=== PATIENT | male | born 1965 | race Caucasian/White ===

== ENCOUNTER → 2018-08-17 | Outpatient (CLI) | payer OTHER, SELFPAY ==
--- NOTE | 2018-08-17 09:58 | STRESSREP_ITS ---
Stress Test Report Date: 08-17-18 Procedure: Pharmacologic stress nuclear imaging study Indications: Abnormal ECG; left bundle branch block Consent: Per the patient Procedure: The patient underwent pharmacologic (Regadenoson) evaluation with a peak heart rate of 100 beats per minute (59 %predicted maximal heart rate) and a peak blood pressure of 158/100 mmHg. The baseline ECG demonstrated sinus rhythm; left bundle branch block. The peak pharmacologic ECG demonstrated no obvious ECG changes. There were no cardiac dysrhythmias pretest, during pharmacologic infusion, or recovery. There was no complaint of chest discomfort during pharmacologic infusion or recovery. The examination was discontinued secondary to completion of protocol. Impression: 1. Pharmacologic (Regadenoson) evaluation 2. Peak pharmacologic ECG with continued left bundle branch block pattern with no obvious ECG changes. 3. There were no cardiac dysrhythmias pretest, during pharmacologic infusion, or recovery. 4. Nuclear images pending Myocardial perfusion imaging study: Technique: The patient was injected with 11.9 millicuries of technetium 99m Cardiolite and subsequently rest SPECT Cardiolite nuclear imaging was obtained in the horizontal long, vertical long, and short axis views. The patient underwent pharmacologic (Regadenoson) evaluation with a peak heart rate of 100 beats per minute (59 % percent predicted maximal heart rate) and a peak blood pressure of 158/100 mmHg. The patient was injected with 34.2 millicuries of technetium 99m Cardiolite and subsequently stress SPECT Cardiolite nuclear imaging was obtained in the horizontal long, vertical long, and short axis views. A gated Cardiolite study at peak stress was obtained. Interpretation: Rest and stress SPECT Cardiolite nuclear imaging status post realignment, normalization, and attenuation correction demonstrate areas of extra cardiac/gastrointestinal tracer uptake at rest and status post stress. Otherwise, post attenuation correction, there appears to be relative uniform tracer uptake with the exception of a small area of subtle diminished tracer uptake near the apical segments without significant change between rest and stress.. There is end systolic thickening and brightening. The gated Cardiolite study demonstrates myocardial thickening and inward wall motion. The reported LVEF is 47 %. Impression: 1. Rest and stress SPECT current nuclear imaging demonstrate myocardial perfusion changes appearing compatible defects of physiologic apical thinning with no myocardial perfusion changes considered diagnostic for associated stress-induced myocardial ischemia or previous myocardial injury/infarction. 2. The gated Cardiolite study reports an LVEF of 47 %. This note was generated with Labotecation software. It may contain incorrect words, spelling, and punctuation that were not noted in checking the note before signing.
== END | disposition home or self-care (01) ==
PROVIDERS: Family Provider Family Medicine; PCP Family Medicine; Referring Provider Family Medicine; Visit Provider Family Medicine
DX: Z82.49 Family history of ischemic heart disease and other diseases of the circulatory system (principal)
CPT/HCPCS: 78452; 93017; A9500; A4216; J2785

== ENCOUNTER → 2018-08-19 | Outpatient (CLI) | payer OTHER, SELFPAY ==
[2018-08-19 08:41] LABS: Anion Gap 5 (5-15); BUN 17 mg/dL (7-18); Chloride 109 mmol/L (98-107); Cholesterol 179 mg/dL (200); Creatinine, Serum 0.85 mg/dL (0.70-1.30); EST Glomerular Filtration Rate 101 mL/min (>60); Est Glom Filt Rate - Afr Amer 122 mL/min (>60); Glucose 96 mg/dL (74-106); High Density Lipoprotein 49 mg/dL; PSA,Total - Annual Screen 1.63 ng/mL (0.00-4.00); Sodium Level 142 mmol/L (136-145); Triglycerides 84 mg/dL; Very Low Density Lipoprotein 17 mg/dL (5-40)
== END | disposition home or self-care (01) ==
LOC: LAB 07:14
PROVIDERS: Family Provider Family Medicine; PCP Family Medicine; Referring Provider Family Medicine; Visit Provider Family Medicine
DX: Z00.00 Encounter for general adult medical examination without abnormal findings (principal)
CPT/HCPCS: 36415; 80048; 80061; 84153; 84403; G0103

== ENCOUNTER 2019-04-24 08:15 | Day surgery (SDC) | payer BC, SELFPAY ==
[2019-04-04 08:40] VITALS: BMI 27.8
--- NOTE | 2019-04-05 02:52 | HP_ITS ---
Intake Vital Signs 04/04/19 BMI 27.8 04/04/19 Height 5 ft 11 in 04/04/19 Weight: 200 lb 04/04/19 BMI 27.8 04/04/19 BP 153/98 H 04/04/19 Blood Pressure Location Rt brachial 04/04/19 Position Sitting 04/04/19 Respiration 18 Intake Visit Reasons: Inguinal Hernia Exercise Teacher Required: No Is patient in pain?: No Allergies No Known Allergies Allergy (Verified 04/04/19 08:40) PFSH Medical History Family history of coronary artery disease (Chronic) Left bundle branch block (Chronic) Inguinal hernia (Chronic) Surgical History H/O right inguinal hernia repair (Resolved) Family History Father Myocardial infarction 50 Grandfather Heart disease Social History (Updated 04/05/19 @ 14:52 by Luis Armando Orozco MD) Smoking Status: Never smoker alcohol intake: current alcohol intake frequency: 3 or more drinks per day Alcohol type: beer HPI HPI HPI: LASHAE NESBITT, is a 54 M who presents to the office today for HPI HPI Surgical H&P: Yes HPI: LASHAE NESBITT, is a 54 M who presents to the office today for Left groin bulging. The patient reports that he has left groin and bellybutton bulging. This is been present for at least 6 weeks. This is causing him pain. He is not having any symptoms on the opposite side. ROS General General: No weight change or fatigue HEENT HEENT: No difficulty swallowing, eye injury or eye surgery Endo Endocrine: No thyroid disease or diabetes mellitus Musc Musculoskeletal: No back problems, arthritis or rheumatoid arthritis Cardio Cardiovascular: No murmur, pacemaker, heart disease, atrial fibrillation, high blood pressure, heart attack, heart stent, palpitations, shortness of breat with exertion or chest pain Psych Psychiatric: No depression or anxiety Resp Respiratory: No shortness of breath, No sleep apnea, No cough, No COPD, No asthma, No emphysema, No wheezing Gastro Gastrointestinal: No abdominal pain, No nausea or vomiting, No diarrhea, No constipation, No blood in stool, No acid reflux, No hemorrhoids, No ulcers, No gallbladder problem, No black,tarry stools Additional Details: Umbilical and left groin bulging Romain Hematologic: No blood thinners Neuro Neurologic: Yes system reviewed and no additional complaints, except as docu Exam Const General: cooperative Orientation: alert, oriented x3 Resp Effort & Inspection: normal respiratory effort Auscultation: clear to auscultation bilaterally Cardio Rate: regular rate Rhythm: regular rhythm Heart Sounds: no murmurs GI Inspection: non-distended Palpation: soft, hernia indirect inguinal on the left and umbilical, nontender Assessment & Plan Problems 1. Umbilical hernia without obstruction and without gangrene K42.9 2. Left inguinal hernia K40.90 Plan The patient has an umbilical hernia which is not easily reducible. He also has a left inguinal hernia which is easily reducible. I do not appreciate a hernia on the opposite side. I discussed open and laparoscopic surgery with him and he would like for robotic assisted laparoscopic left inguinal hernia repair with mesh as well as umbilical hernia repair with mesh. I explained that I would likely try to use this umbilical hernia as a port site but if I was unable to I would have to close it separately in an open fashion. I discussed robotic assisted laparoscopic inguinal hernia repair in detail. I discussed the risks including but not limited to bleeding, infection, cord injury, chronic groin pain, hernia recurrence. The patient understands the risks and is willing to proceed. I also discussed contralateral hernia repair if present and the patient would like the opposite side hernia repaired if there is one present on that side. Luis Armando Orozco MD Pager: [facility] [address] [place] [address], [address] [place] [address] Office: Coding Level of Care Code Off vis,new,level 4 Diagnoses Umbilical hernia without obstruction and without gangrene K42.9 ??Obstruction and gangrene presence: without obstruction or gangrene Left inguinal hernia K40.90 04/05/19 7671 <Electronically signed by Luis Armando soares MD> Date _ Luis Armando Orozco MD I have re-examined the patient. There are no clinical changes since date of exam. The patient is here for screening colonoscopy prior to his hernia repair. He has never had colonoscopy in the past. I explained endoscopy in detail to the patient. I explained the risks including but not limited to stroke or heart attack with anesthesia, perforation of the GI tract, bleeding, infection. I explained that any of these could necessitate further emergency surgery. The patient understands and all questions were answered sufficiently. The patient wishes to proceed with procedure. Luis Armando Orozco MD Pager: [facility] [address] [place] [address] [address] [place] [address] Office:
[2019-04-24] VITALS (7 sets, daily range): BP systolic 134–150; BP diastolic 97–102; PULSE 69–90; RESP 16; TEMP 36.1–37.2; O2SAT 96–99; BMI 27.4
[2019-04-24] MEDS: Lactated Ringers 1,000 ML 100 ML IV (08:40)
--- NOTE | 2019-04-24 09:15 | COLBX_PTH ---
PATIENT: LASHAE NESBITT LOC: EN U#:[id number] AGE/SX: 54/M ROOM: RE04/24/[address]: Dr. Luis Armando Orozco MD : 1965 BED: DIS: 04/24/2019 SPEC #: [id number] RECD: 04/24/19 12:55 STATUS: PAULO SMALLS #: [id number] BIGG: 04/24/19 09:[address]: Luis Armando Orozco DEPT: SURGICAL PATHOLOGY RECD BY: Eriberto Nur ENTERED: 04/24/19 14:03 SP TYPE: COLON BX OTHR DR: Dr. Sukhdeep Abernathy MD Tissues: Descending colon Procedures: Surgery Specimen Level IV HEADER OPERATION: Colonoscopy (MAC) PRE-OP DIAGNOSIS: Screening TISSUE SUBMITTED: Descending polyp biopsy MICROSCOPIC DIAGNOSIS Descending colon polyp, biopsy: Tubular adenoma. SJ:amarilis 04/25/19 MICROSCOPIC DESCRIPTION Slides are reviewed. GROSS DESCRIPTION Received in fixative is one container labeled with the patient's name and designated descending polyp biopsy. The specimen consists of one irregular fragment of light cano soft tissue that measures 0.4 x 0.4 x 0.1 cm. The specimen is totally submitted in one cassette. / SJ:rg 04/24/19 TC:1 CPT: 33931
--- NOTE | 2019-04-24 09:25 | OP.CCLET_ITS ---
04/24/2019 Sukhdeep Abernathy MD [address] [place] [address] Re : Colonoscopy procedure for Juanjose Light Dear Dr. Abernathy This procedure was performed on Wednesday, April 24, 2019. My impressions and recommendations are as follows: Impressions : - One small polyp in the descending colon, removed with a cold biopsy forceps. Resected and retrieved. - The examination was otherwise normal on direct and retroflexion views. Recommendations : - Written discharge instructions were provided to the patient. - The signs and symptoms of potential delayed complications were discussed with the patient. - Discharge patient to home. - Resume previous diet. - Continue present medications. - Await pathology results. - Repeat colonoscopy for surveillance based on pathology results. My findings are described in the full procedure note, which is enclosed. If I can be of further assistance, please feel free to contact me at Doctor phone number(s): , Work: . Sincerely, Luis Armando Orozco MD 04/24/2019 9:24:53 AM This report has been signed electronically.
--- NOTE | 2019-04-24 09:25 | OP.COLON_ITS ---
Patient Name: Juanjose Light Procedure Date: 04/24/2019 8:56 AM Date of : 1965 Age: 54 Procedure: Colonoscopy Indications: Screening for colorectal malignant neoplasm Providers: Luis Armando Orozco MD Medicines: Monitored Anesthesia Care Patient Profile: This is a 54 year old male. Refer to note in patient chart for documentation of history and physical. Last Colonoscopy: none. The patient's first colonoscopy is today. Complications: No immediate complications. Procedure: Pre-Anesthesia Assessment: - Prior to the procedure, a History and Physical was performed, and patient medications and allergies were reviewed. The patient's tolerance of previous anesthesia was also reviewed. The risks and benefits of the procedure and the sedation options and risks were discussed with the patient. All questions were answered, and informed consent was obtained. Prior Anticoagulants: The patient has taken no previous anticoagulant or antiplatelet agents. After reviewing the risks and benefits, the patient was deemed in satisfactory condition to undergo the procedure. After I obtained informed consent, the scope was passed under direct vision. Throughout the procedure, the patient's blood pressure, pulse, and oxygen saturations were monitored continuously. The Colonoscope was introduced through the anus and advanced to the cecum, identified by appendiceal orifice and ileocecal valve. The colonoscopy was performed without difficulty. The patient tolerated the procedure well. The quality of the bowel preparation was good. Scope In: 9:08:03 AM Scope Withdrawal Time 0 hours 6 minutes 36 seconds Scope Out: 9:18:15 AM Total Procedure Duration Time 0 hours 10 minutes 12 seconds Findings: A small polyp was found in the descending colon. The polyp was removed with a cold biopsy forceps. Resection and retrieval were complete. The exam was otherwise without abnormality on direct and retroflexion views. Impression: - One small polyp in the descending colon, removed with a cold biopsy forceps. Resected and retrieved. - The examination was otherwise normal on direct and retroflexion views. Recommendation: - Written discharge instructions were provided to the patient. - The signs and symptoms of potential delayed complications were discussed with the patient. - Discharge patient to home. - Resume previous diet. - Continue present medications. - Await pathology results. - Repeat colonoscopy for surveillance based on pathology results. Procedure Code(s): --- Professional --- 59555, Colonoscopy, flexible; with biopsy, single or multiple Diagnosis Code(s): --- Professional --- Z12.11, Encounter for screening for malignant neoplasm of colon D12.4, Benign neoplasm of descending colon CPT copyright 2017 [employer]. All rights reserved. The codes documented in this report are preliminary and upon ticket scheduler review may be revised to meet current compliance requirements. Luis Armando Orozco MD 04/24/2019 9:24:53 AM This report has been signed electronically. Number of Addenda: 0 Note Initiated On: 04/24/2019 8:56 AM
== END 2019-04-24 10:07 | disposition home or self-care (01) ==
LOC: EN 08:21 → AC 08:21
PROVIDERS: PCP Family Medicine; Referring Provider Family Medicine; Visit Provider Surgery
PROC: 0DJD8ZZ Inspection of Lower Intestinal Tract, Via Natural or Artificial Opening Endoscopic (ICD-10-PCS; CPT 45378; principal; 2019-04-24 09:10)
DX: Z12.11 Encounter for screening for malignant neoplasm of colon (principal); D12.4 Benign neoplasm of descending colon; K40.90 Unilateral inguinal hernia, without obstruction or gangrene, not specified as recurrent; K42.9 Umbilical hernia without obstruction or gangrene; Z91.14 Patient's other noncompliance with medication regimen
CPT/HCPCS: 45380; 88305; J7120

== ENCOUNTER → 2019-05-17 | Outpatient (CLI) | payer BC, SELFPAY ==
[2018-12-06 15:45] VITALS: BMI 27.8
[2019-05-04 14:45] VITALS: BMI 28.4
--- NOTE | 2019-05-17 13:00 | ECHOD_ITS ---
Reason For Study: ARRHYTHMIA Procedure This was a 2D Doppler, Color Flow transthoracic echocardiogram. Exam performed in department. Left Ventricle Normal LV size. Septal motion consistent with IVCD. Left ventricular systolic function is lower limits of normal. The estimated ejection fraction is 53 %. Diastolic function is indeterminate. Right Ventricle Normal RV size. Normal systolic function. Atria Normal left atrium. Normal right atrium. Mitral Valve Mild focal mitral valve thickening. Mild (1+) eccentric mitral valve insufficiency. Tricuspid Valve Normal tricuspid valve. Aortic Valve Normal aortic valve. Trisinus/trileaflet aortic valve. Pulmonic Valve Normal pulmonic valve. Great Vessels Normal aortic root. The pulmonary artery is normal size. Normal inferior vena cava. Pericardium/Pleural No pericardial effusion. MMode/2D Measurements & Calculations LVIDd: 4.8 cm IVSd: 1.2 cm Ao root diam: 3.3 cm LVIDs: 3.6 cm LVPWd: 1.1 cm RVDd: 3.8 cm FS: 25.1 % LAV(MOD-bp): 44.0 ml LVAd ap4: 34.4 cm2 SV(MOD-sp4): 50.3 ml LAV(MOD-bp) Indexed: 20.9 ml/m2 EDV(MOD-sp4): 102.7 ml LAV(MOD-sp2): 39.9 ml EDV(sp4-el): 105.4 ml LAV(MOD-sp4): 44.7 ml LVAs ap4: 21.5 cm2 ESV(MOD-sp4): 52.4 ml ESV(sp4-el): 52.8 ml EF(MOD-sp4): 49.0 % EF(sp4-el): 49.9 % SV(sp4-el): 52.6 ml LA A4 area: 16.8 cm2 LA dimension(2D): 3.9 cm RA A4 area: 16.5 cm2 Time Measurements MV dec time: 0.27 sec Doppler Measurements & Calculations MV E max ajay: 56.7 cm/sec Lat Peak E' Ajay: 5.1 cm/sec Med Peak E' Ajay: 5.3 cm/sec MV A max ajay: 89.4 cm/sec E/E' lat: 11.1 E/E' med: 10.7 MV E/A: 0.63 Ao V2 max: 138.8 cm/sec LV V1 max: 112.5 cm/sec PA V2 max: 188.1 cm/sec Ao max P.7 mmHg LV V1 max P.1 mmHg Interpretation Summary Normal LV size. Left ventricular systolic function is lower limits of normal. The estimated ejection fraction is 53 %. Mild (1+) eccentric mitral valve insufficiency. Septal motion consistent with IVCD. Diastolic function is indeterminate. Ordering Physician: Abdi Altman Referring Physician: LAUREN DUBOIS Performed By: Guerline Ledezma, RDCS, RVT
--- NOTE | 2019-05-17 13:51 | CT_ITS ---
STUDY: CARDIAC CALCIUM SCORING - CT CHEST REASON FOR EXAM: Male, 54 years old. CAD -- CALCIUM SCORE OVER READ ONLY RADIATION DOSAGE (If Supplied By Facility): CTDIvol = ( 12.19 ) mGy, DLP = ( 243.79 ) mGycm TECHNIQUE: Axial non-enhanced images were acquired through the heart for the sole purpose of measuring coronary artery calcium. Individualized dose optimization techniques were used for this CT. COMPARISON: None. FINDINGS: Visualized surrounding anatomy: Normal. Left Main Coronary Artery: 42.3 Left Anterior Descending Artery: 184 Left Circumflex Artery: 0 Right Coronary Artery: 90 Tiny cyst in left lobe of liver Total Calcium Score: 317 CT/Limited Chest CT w/CCTA IMPRESSION: A Calcium Score of 317 places the patient in the approximate 75-90 percentile, based on the YEAGER data calculator. Please go to: [email or web address]-nhlbi.org/Calcium/input.aspx , for a description of the calculator. Electronically Signed: Juanjose Ratliff MD at 17:18 EST , Service support ,
[2019-05-17 13:57] VITALS: BP 139/93; PULSE 74; RESP 16; O2SAT 98; BMI 27.8
--- NOTE | 2019-05-17 15:07 | CA.SCORE ---
Calcium Scoring Date of Study:: 05/17/19 Coronary Calcium Scoring: High-resolution Computed Tomographic imaging of the chest was performed on [05/17/2019], with particular attention paid to the coronary arteries. Images from the examination were analyzed for the presence and extent of coronary artery calcification , using coronary calcium quantification software. The patient tolerated the procedure well and there were no complications. The results of the coronary calcification analysis are provided below. - Findings Left Main (LM): 42 Left Anterior Descending (LAD): 184 Left Circumflex (LCX): 0 Right Coronary Artery (RCA): 90 Total Agatston Score: 316 Percentile Rankin-90 Calcium Scoring Interpretation: 0 No identifiable atherosclerotic plaque. Very low cardiovascular disease risk. <5% chance of presence coronary artery disease A Negative Examination 1-10 Minimal Plaque burden. Significant coronary artery disease very unlikely. 11-100 Mild plaque burden. Likely mild or minimal coronary atherosclerosis. 101-400 Moderate plaque burden Moderate non-obstructive coronary artery disease highly likely. Over 400 Extensive plaque burden. High likelihood of at least one significant coronary stenosis (>50% diameter) Calcium Score: 101 - 400 Moderate non-obstructive coronary artery disease highly like - The above is suggestive of moderate atherosclerotic disease. Likely nonobstructive. However the full evaluation of cardiac risk should include assessment of all other risk factors. The percentile range however puts him higher than 75% of people in his age group.
[2019-05-17 16:14] LABS: CRP, High Sensitivity Cardiac 1.56 mg/L
[2019-05-21 16:08] LABS: CHOLESTEROL TOTAL 173 mg/dL (100-199); HDL-C 43 mg/dL (>39); HDL-P TOTAL 29.6 umol/L (>=30.5); SMALL LDL-P 678 nmol/L (<=527); TRIGLYCERIDES 144 mg/dL (0-149)
[2019-05-21 19:11] LABS: Lipoprotein A 234.8 nmol/L (<75.0)
[2019-05-21 19:25] LABS: INSULIN RESISTANCE SCORE 40 (<=45); LDL SIZE 20.7 nm (>20.5); LDL-C 101 mg/dL (0-99); LDL-P 1388 nmol/L (<1000)
== END | disposition home or self-care (01) ==
PROVIDERS: Family Provider Family Medicine; PCP Family Medicine; Referring Provider Internal Medicine Cardiovascular Disease; Visit Provider Internal Medicine Cardiovascular Disease
DX: I44.7 Left bundle-branch block, unspecified (principal); R03.0 Elevated blood-pressure reading, without diagnosis of hypertension; Z82.49 Family history of ischemic heart disease and other diseases of the circulatory system
CPT/HCPCS: 36415; 75571; 76380; 80061; 83695; 83704; 86141; 93306

== ENCOUNTER → 2019-06-01 11:53 | Outpatient (CLI) | payer BC, SELFPAY ==
[2019-04-04 08:40] VITALS: BMI 27.8
--- NOTE | 2019-04-05 02:52 | HP_ITS ---
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 Is patient in pain?: No Allergies No Known Allergies Allergy (Verified 04/04/19 08:40) PFSH Medical History Family history of coronary artery disease (Chronic) Left bundle branch block (Chronic) Inguinal hernia (Chronic) Surgical History H/O right inguinal hernia repair (Resolved) Family History Father Myocardial infarction 50 Grandfather Heart disease Social History (Updated 04/05/19 @ 14:52 by Luis Armando Orozco MD) Smoking Status: Never smoker alcohol intake: current alcohol intake frequency: 3 or more drinks per day Alcohol type: beer HPI HPI HPI: LASHAE NESBITT, is a 54 M who presents to the office today for HPI HPI Surgical H&P: Yes HPI: LASHAE NESBITT, is a 54 M who presents to the office today for Left groin bulging. The patient reports that he has left groin and bellybutton bulging. This is been present for at least 6 weeks. This is causing him pain. He is not having any symptoms on the opposite side. ROS General General: No weight change or fatigue HEENT HEENT: No difficulty swallowing, eye injury or eye surgery Endo Endocrine: No thyroid disease or diabetes mellitus Musc Musculoskeletal: No back problems, arthritis or rheumatoid arthritis Cardio Cardiovascular: No murmur, pacemaker, heart disease, atrial fibrillation, high blood pressure, heart attack, heart stent, palpitations, shortness of breat with exertion or chest pain Psych Psychiatric: No depression or anxiety Resp Respiratory: No shortness of breath, No sleep apnea, No cough, No COPD, No asthma, No emphysema, No wheezing Gastro Gastrointestinal: No abdominal pain, No nausea or vomiting, No diarrhea, No constipation, No blood in stool, No acid reflux, No hemorrhoids, No ulcers, No gallbladder problem, No black,tarry stools Additional Details: Umbilical and left groin bulging Romain Hematologic: No blood thinners Neuro Neurologic: Yes system reviewed and no additional complaints, except as docu Exam Const General: cooperative Orientation: alert, oriented x3 Resp Effort & Inspection: normal respiratory effort Auscultation: clear to auscultation bilaterally Cardio Rate: regular rate Rhythm: regular rhythm Heart Sounds: no murmurs GI Inspection: non-distended Palpation: soft, hernia indirect inguinal on the left and umbilical, nontender Assessment & Plan Problems 1. Umbilical hernia without obstruction and without gangrene K42.9 2. Left inguinal hernia K40.90 Plan The patient has an umbilical hernia which is not easily reducible. He also has a left inguinal hernia which is easily reducible. I do not appreciate a hernia on the opposite side. I discussed open and laparoscopic surgery with him and he would like for robotic assisted laparoscopic left inguinal hernia repair with mesh as well as umbilical hernia repair with mesh. I explained that I would likely try to use this umbilical hernia as a port site but if I was unable to I would have to close it separately in an open fashion. I discussed robotic assisted laparoscopic inguinal hernia repair in detail. I discussed the risks including but not limited to bleeding, infection, cord injury, chronic groin pain, hernia recurrence. The patient understands the risks and is willing to proceed. I also discussed contralateral hernia repair if present and the patient would like the opposite side hernia repaired if there is one present on that side. Luis Armando Orozco MD Pager: [facility] [address] [place] [address], [address] [place] [address] Office: Coding Level of Care Code Off vis,new,level 4 Diagnoses Umbilical hernia without obstruction and without gangrene K42.9 ??Obstruction and gangrene presence: without obstruction or gangrene Left inguinal hernia K40.90 04/05/19 6746 <Electronically signed by Luis Armando soares MD> Date _ Luis Armando Orozco MD Patient is scheduled for hernia repair. The patient has never had endoscopy for screening colonoscopy. Screening colonoscopy will be performed before hernia repair I explained endoscopy in detail to the patient. I explained the risks including but not limited to stroke or heart attack with anesthesia, perforation of the GI tract, bleeding, infection. I explained that any of these could necessitate further emergency surgery. The patient understands and all questions were answered sufficiently. The patient wishes to proceed with procedure. Luis Armando Orozco MD Pager: [facility] [address] [place] [address] Office:
[2019-05-17 13:57] VITALS: BMI 27.8
== END ==
PROVIDERS: PCP Family Medicine; Visit Provider Surgery
DX: R69 Illness, unspecified (principal)

== ENCOUNTER 2020-01-19 18:12 | Emergency (ER) | payer BC, SELFPAY ==
[2019-05-17 13:57] VITALS: BMI 27.8
[2020-01-19 18:13] VITALS: BP 161/100; PULSE 85; RESP 24; TEMP 36.3; O2SAT 99; BMI 27.6
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
[2020-01-19] MEDS: Morphine 4 MG/ML Syringe IV ×3 (18:32→20:14)
[2020-01-19] MEDS: Ondansetron 4 MG/2 ML Vial IV (18:32)
[2020-01-19] MEDS: Diphth,Pertuss(Acell),Tet Vac 0.5 ML Vial IM (18:41)
[2020-01-19 18:52] LABS: Absolute Neutrophil Count 6.8 X10^3/uL (2.0-7.7); Basophil# 0.06 X10^3/uL; Basophil% 0.6 % (0-1); Eosinophil# 0.09 X10^3/uL; Eosinophils% 0.9 % (0-5); Hematocrit 41.5 % (40-54); Hemoglobin 14.1 g/dL (13.0-16.5); Lymphocyte % 24.4 % (19-41); Mean Corpuscular Hgb 32.3 pg (27.0-32.0); Mean Platelet Vol. 9.6 fl (6.2-12.0); Monocyte# 0.73 X10^3/uL; Monocyte% 7.1 % (0-10); NRBC Flagged by Analyzer 0 % (0-5); Neutrophil # 6.82 X10^3/uL (2.7-7.7); Neutrophil % 66.6 % (47-70); Platelet Count 267 K/mm3 (150-450); RBC Distribution Width CV 12.2 % (11.6-14.6); RBC Distribution Width SD 42.8 fl (35.1-43.9); Red Blood Count 4.37 M/mm3 (4.6-6.2); White Blood Count 10.2 K/mm3 (4.4-11.0)
[2020-01-19 19:02] LABS: International Normalized Ratio 1.1; Prothrombin Time (Protime)PT. 13.4 SECONDS (11.7-14.9)
[2020-01-19 19:03] LABS: Partial Thromboplast Time 26.1 Seconds (24.1-36.2)
[2020-01-19 19:12] VITALS: BP 181/105; PULSE 89; RESP 20; O2SAT 96
[2020-01-19 19:12] LABS: AST(SGOT) 26 U/L (15-37); Alanine Aminotransfer ALT/SGPT 28 U/L (16-61); Albumin, Serum 3.4 g/dL (3.2-5.0); Alkaline Phosphatase 92 U/L (45-117); Anion Gap 9 (5-15); BUN 15 mg/dL (7-18); BUN/Creat Ratio 17.6 RATIO (10-20); Calcium,Total 7.6 mg/dL (8.5-10.1); Chloride 110 mmol/L (98-107); Creatinine, Serum 0.85 mg/dL (0.70-1.30); EST Glomerular Filtration Rate 100 mL/min (>60); Est Glom Filt Rate - Afr Amer 121 mL/min (>60); Estimated Creatinine Clearance 108.27 ml/min; Globulin 3.3 g/dL (2.2-4.2); Glucose 100 mg/dL (74-106); Potassium 2.9 mmol/L (3.5-5.1); Protein, Total 6.7 g/dL (6.4-8.2); Sodium Level 143 mmol/L (136-145)
[2020-01-19] MEDS: 0.9% Normal Saline 1,000 ML 150 ML IV (19:20)
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
[2020-01-19 20:11] VITALS: BP 177/100; PULSE 87; RESP 20; O2SAT 98
[2020-01-19 21:12] VITALS: BP 173/103; PULSE 89; RESP 19; O2SAT 96
--- NOTE | 2020-01-19 21:15 | ED.RN ---
PT REFUSED TO SIGN FOR TRANSPORT AND REQUESTED TO GO HOME, DR. MARX AT BEDSIDE TALKING WITH PT.
[2020-01-19 21:29] VITALS: BP 191/104; PULSE 89; RESP 18; TEMP 36.3; O2SAT 96
== END 2020-01-19 21:34 | disposition short-term general hospital (02) ==
LOC: ED 18:33
PROVIDERS: Emergency Provider Emergency Medicine; PCP Family Medicine
DX: S22.41XA Multiple fractures of ribs, right side, initial encounter for closed fracture (principal); S50.01XA Contusion of right elbow, initial encounter; S00.211A Abrasion of right eyelid and periocular area, initial encounter; V89.0XXA Person injured in unspecified motor-vehicle accident, nontraffic, initial encounter; Y93.I9 Activity, other involving external motion; Y92.410 Unspecified street and highway as the place of occurrence of the external cause; Y99.8 Other external cause status
CPT/HCPCS: 70450; 71260; 72125; 74177; 80053; 80320; 84484; 85025; 85610; 85730; 90715; 93005; 96374; 96375; 96376; 99285; J7030; Q9967; A4216; G0480; J2405

== ENCOUNTER → 2020-07-17 15:41 | Outpatient (CLI) | payer BC, SELFPAY ==
--- NOTE | 2020-07-17 15:45 | MRI_ITS ---
STUDY: MRI RIGHT SHOULDER REASON FOR EXAM: Male, 55 years old. RT SHOULDER IMPINGEMENT TECHNIQUE: Standardized fat and water weighted pulse sequences were obtained in all 3 orthogonal planes. COMPARISON: None. FINDINGS: Mild/moderate supraspinatal and infraspinatus tendinosis with low-grade partial-thickness tear of the supraspinatus articular surface fibers (coronal image 15 series 5). Mild subscapularis tendinosis. Normal teres minor tendon. No muscle atrophy. Moderate intracapsular biceps tendinosis. Biceps labral anchor intact. Labral degeneration with anterior inferior tearing and large inferior para labral cyst formation measuring up to 2.1 cm x 1 cm (coronal image 6 series 5 and axial images 17 through 20 series 2). Capsular ligaments intact. Normal rotator cuff interval. Glenohumeral joint fluid physiologic. No subacromial subdeltoid fluid. Mild glenohumeral cartilage loss. Mild/moderate acromioclavicular joint arthrosis with joint space widening (coronal image 11 series 5). Mild anterior interval narrowing. No acute fracture line. No acute dislocation. No acute bone destruction. Intact coracohumeral and coracoacromial ligaments. Normal quadrilateral space. Normal axillary space. Normal deltoid muscle. Normal trapezius muscle. MRI/Upper Ext Joint Only(Routine) IMPRESSION: Rotator cuff tendinosis with low-grade partial-thickness supraspinatus articular fiber tear Moderate intracapsular long biceps tendinosis Labral degeneration with tearing and large inferior posterior para labral cyst Glenohumeral and AC joint arthrosis with mild anterior interval narrowing Electronically Signed: Eduar Martino DO at 8:32 EDT Tel , Service support ,
== END ==
PROVIDERS: PCP Family Medicine; Referring Provider Orthopaedic Surgery; Visit Provider Orthopaedic Surgery
DX: M75.41 Impingement syndrome of right shoulder (principal)
CPT/HCPCS: 73221

== ENCOUNTER 2020-11-17 14:01 | Outpatient (CLI) | payer BC, SELFPAY ==
[2020-11-17 14:32] VITALS: BP 121/90; PULSE 77; RESP 16; TEMP 37.1; O2SAT 97; BMI 27.3
[2020-11-17] MEDS: 0.9% Saline Lock 10 ML Syringe IV (14:49)
[2020-11-17 15:04] VITALS: BP 133/96; PULSE 82; RESP 16; TEMP 36.6; O2SAT 96
[2020-11-17 15:58] VITALS: BP 133/96; PULSE 68; RESP 16; TEMP 36.8; O2SAT 96
== END 2020-11-17 16:05 | disposition home or self-care (01) ==
LOC: ICUOUT 14:05 → MS2 14:07
PROVIDERS: PCP Family Medicine; Referring Provider Nurse Practitioner Acute Care; Visit Provider Nurse Practitioner Acute Care
DX: Z23 Encounter for immunization (principal); U07.1 COVID-19
CPT/HCPCS: J7050; M0243; A4216; Q0244

== ENCOUNTER 2021-04-06 14:30 | Outpatient (RCR) | payer BC, SELFPAY ==
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
--- NOTE | 2021-08-12 10:44 | HP.PT.NRP ---
LASHAE NESBITT was seen in my office for initial evaluation on 03/09/21. The following Plan of Care was established for this patient: Initial Frequency: 2-3x /Week Initial Duration: 4-6 Weeks Patient/Client Instruction: Educate patient on: Condition, Plan of Care For the Purpose of:: To improve self management Therapeutic Exercise to Include: Strength training, Endurance training, Flexibilty training, Passive ROM, Active ROM, Scapular Strength/Stabilization For the Purpose of:: To decrease pain, To increase ROM, To improve muscle performance and motor function Cryotherapy (ice pack, ice massage): Yes For the Purpose of:: To decrease pain This patient was last seen in our office . Pertinent comments regarding their Physical therapy will appear below: Pt was treated for 5 physical therapy visits for a R shoulder pain through the date of 04/06/21. Pt has not returned through this date and is discontinued at this time. At this point I will be discontinuing this patient from physical therapy. I would be happy to see this patient again in the future if found appropriate by the physician. Thank you! Ko Poole, PT, ATC Balance/Gait/Functional tests - Balance/Special Test Scores Quick DASH Score: 84.0900
== END 2021-04-06 19:00 | disposition home or self-care (01) ==
LOC: PT 14:30
PROVIDERS: PCP Family Medicine; Referring Provider Orthopaedic Surgery; Visit Provider Orthopaedic Surgery
DX: S43.101D Unspecified dislocation of right acromioclavicular joint, subsequent encounter (principal); X58.XXXD Exposure to other specified factors, subsequent encounter
CPT/HCPCS: 97110; 97140; 97161

== ENCOUNTER 2022-09-02 09:56 | Day surgery (SDC) | payer BC, SELFPAY ==
[2022-09-02] VITALS (8 sets, daily range): BP systolic 144–168; BP diastolic 92–107; PULSE 73–80; RESP 16–18; TEMP 36.6–37.3; O2SAT 93–99; BMI 27.1
--- NOTE | 2022-09-02 10:18 | EKG12_ITS ---
Test Reason : PRE-OP Blood Pressure : / mmHG Vent. Rate : 069 BPM Atrial Rate : 069 BPM P-R Int : 166 ms QRS Dur : 148 ms QT Int : 456 ms P-R-T Axes : 048 -58 032 degrees QTc Int : 488 ms Normal sinus rhythm Left axis deviation Left bundle branch block Abnormal ECG When compared with ECG of 19-JAN-2020 19:22, No significant change was found Confirmed by OMEGA CHRISTENSEN, SANDY ([id number]), department editor LIS MENDEZ ([id number]) on 09/06/2022 2:41:38 PM Referred By: Luis Armando Orozco Confirmed By:SANDY DUFF MD
[2022-09-02] MEDS: Lactated Ringers 1,000 ML 15 ML IV (10:20)
[2022-09-02 10:31] LABS: Hematocrit 44.6 % (40-54); Hemoglobin 15.6 g/dL (13.0-16.5); Mean Corpuscular Hgb 32.8 pg (27.0-32.0); Mean Corpuscular Volume 93.7 fL (80-94); Mean Platelet Vol. 9.2 fl (6.2-12.0); Platelet Count 231 K/mm3 (150-450); RBC Distribution Width CV 12.6 % (11.6-14.6); RBC Distribution Width SD 43.5 fl (35.1-43.9); Red Blood Count 4.76 M/mm3 (4.6-6.2); White Blood Count 5.4 K/mm3 (4.4-11.0)
--- NOTE | 2022-09-02 10:31 | PCM.HP.BLA ---
History and Physical Date of Admission: 09/02/22 Intake Vital Signs ? 11/17/2113:32 08/19/2313:31 Height 5 ft 9 in 5 ft 9 in Weight: ? 187 lb 6 oz BMI ? 27.6 BP ? 126/88 H Blood Pressure Location ? Rt brachial Position ? Sitting Respiration ? 17 Pulse ? 72 Pulse Source ? Monitor Temp ? 97.7 F L Temp Source ? Temporal Pulse Oximetry (%) ? 98 Oxygen Delivery Method ? room air Intake Visit Reasons:?INGUINAL HERNIA Chief Complaint: inguinal hernia Is patient in pain?: No Allergies lisinopril Adverse Reaction (Intermediate, Verified 08/19/22 14:34) dry hacking cough Medications losartan 25 mg tablet 25 mg PO DAILY 11/17/20 [History Confirmed 08/19/22] PFSH Medical History?(Updated 08/19/22 @ 15:[address] Luis Armando Orozco MD) Family history of coronary artery disease Inguinal hernia Left bundle branch block Surgical History? H/O right inguinal hernia repair Family History?(Reviewed 11/13/20 @ 15:04 by Muna De Anda BUSINESS SERVICES ADMINISTRATOR, BUSINESS SERVICES ADMINISTRATOR-C) Father Myocardial infarction ?? ? 50Grandfather Heart disease Social History?(Updated 08/19/22 @ 14:31 by Susy Weldon) Smoking Status:? Never smoker alcohol intake:? current alcohol intake frequency: 3 or more drinks per day Alcohol type: beer substance use type:? marijuana HPI HPI HPI: Patient is here because of left inguinal hernia and umbilical hernia.? He had these evaluated few years ago and now they are bothering him more and he would like them fixed.? He does not report any nausea or vomiting.? Denies any fevers or chills.? Says there is no acute pain. ROS General General: No weight change, appetite, fatigue, colon cancer, breast cancer or weakness HEENT HEENT: No difficulty swallowing, eye injury, eye surgery, swollen glands or hoarseness Endo Endocrine: No thyroid disease, diabetes mellitus, thyroid cancer, Hair loss, heat intolerance or cold intolerance Skin Skin: No rash or changing moles Musc Musculoskeletal: No back problems, arthritis, rheumatoid arthritis, gout or joint pain Cardio Cardiovascular: Yes high blood pressure; No murmur, pacemaker, heart disease, atrial fibrillation, heart attack, heart stent, palpitations, shortness of breat with exertion or chest pain Psych Psychiatric: No depression, anxiety or hearing voices Resp Respiratory: No shortness of breath, No sleep apnea, No cough, No COPD, No asthma, No emphysema and No wheezing Gastro Gastrointestinal: No abdominal pain, No nausea or vomiting, No diarrhea, No constipation, No blood in stool, No acid reflux, No hemorrhoids, No ulcers, No gallbladder problem and No black,tarry stools Romain Hematologic: No blood thinners, No blood disorders, No bleeding, No anemia and No blood clots Neuro Neurologic: No system reviewed and no additional complaints, except as documented, No as per HPI, No abnormal gait, No abnormal hearing, No abnormal movements, No abnormal speech, No behavioral changes, No burning sensations, No confusion, No convulsions, No disequilibrium, No dizziness, No localized weakness, No frequent falls, No headache(s), No lack of coordination, No loss of vision, No memory loss, No numbness, No other visual disturbances, No radicular pain, No restless legs, No sensory deficit, No syncope, No tingling, No tremor(s), No weakness and No other Exam Const General: cooperative Orientation: alert and oriented x3 HENMT Head: normal to inspection Neck Neck: normal visual inspection and full ROM Chest Chest palpation & inspection: normal inspection of the chest Resp Effort & Inspection: normal respiratory effort Auscultation: clear to auscultation bilaterally Cardio Rate: regular rate Rhythm: regular rhythm GI Inspection: non-distended Palpation: soft, hernia indirect inguinal on the left and umbilical and nontender Skin General: no rashes or lesions noted Neuro General: patient alert and patient oriented x3 Extrem General: full ROM Psych Appearance: grossly normal Mental Status: mental status grossly normal Assessment and Plan Assessment and Plan (1) Left inguinal hernia: ?Status:?Acute (2) Umbilical hernia: ?Status:?Acute ?Qualifiers: ?Obstruction and gangrene presence:?without obstruction or gangrene? Qualified Code(s):?K42.9 - Umbilical hernia without obstruction or gangrene Plan Patient has an umbilical hernia in the left inguinal hernia.? I discussed robotic assisted left inguinal hernia repair with mesh.? I also discussed using the umbilicus as a port site but if I was unable to do that he may require open umbilical hernia repair.? I discussed possibly using mesh to the umbilicus if the hernia defect is over centimeter.? I also discussed the risks of both procedures including but not limited to bleeding, infection, injury to underlying organs such as the bowel, bladder, ureter or blood vessels.? Patient understands the risks and is willing to proceed with both hernia repairs. Luis Armando Orozco MD Pager: [facility] [address] [place] [address] [address] [place] [address] Office: I have examined the patient and the H&P has been reviewed. There are no clinical changes since date of exam.
[2022-09-02] MEDS: Cefazolin 2 GM in 0.9% Normal Saline 100 ML IV (11:09)
[2022-09-02] MEDS: Bupivacaine Mpf 0.5% 30 ML VIAL (11:17)
--- NOTE | 2022-09-02 12:19 | PCM.OPRPT ---
Report of Operation Date of Procedure: 09/02/22 Pre-Operative Diagnosis: 1. Umbilical hernia 2. Left inguinal hernia Post-Operative Diagnosis: Same Surgery/Procedure Performed:: 1. Robotic assisted laparoscopic left inguinal hernia repair with mesh 2. Umbilical hernia repair Description of Procedure: Patient was brought back to the operating room and general anesthesia was induced. The abdomen was prepped and draped in usual sterile fashion. A curvilinear incision was marked superior to the umbilicus and then incision was made with a scalpel. The fat that was protruding through the hernia was isolated and reduced into the abdomen. The abdomen was entered through the hernia. Port was placed in the abdomen was insufflated to 15 mmHg. Next under direct visualization an 8 mm port was placed in the left lower quadrant as well as the right lateral sidewall. The robot was then docked after the patient was placed in Trendelenburg position. Patient had a large left direct inguinal hernia. Use electrocautery scissors an incision was made in the peritoneum. This was dissected inferiorly until the hernia sac was encountered. The hernia was dissected free from its adhesions using sharp and electrocautery dissection. Dissection was carried inferiorly and medially. Next ProGrip mesh was unfolded over the hernia defect completely covering the defect with good coverage. The peritoneum was then reapproximated using a running 3 OV lock suture completely covering the mesh. The robot was then undocked and the abdomen was allowed to desufflate. The umbilical hernia was closed with a [id number] 0 Vicryl suture. The skin incisions were injected with local anesthetic. Skin was closed with interrupted 4-0 Monocryl sutures. Steri-Strips and bandages were applied. Patient tolerated the procedure well was brought to PACU in stable condition. Grafts/Implants Used: ProGrip mesh in the left inguinal region Admit VTE Documentation VTE Mechan Device Prophylaxis: SCD's
--- NOTE | 2022-09-02 12:21 | DCINST_ITS ---
Discharge Instructions Procedure Hernia Diet Discharge Diet: Light diet - advance as tolerated Activity Discharge Activity: May Not Drive (for 2-3 days or while taking narcotic pain meds.) and May Shower (with the bandage in place 1-2 days after surgery.) Lifting Restrictions: 20 pounds for 4 weeks. Additional Activity Instructions:: Climbing stairs is fine, walking is encouraged. Sitting in bed may be uncomfortable. Sitting up using your lateral muscles (sitting up sideways) is usually more comfortable. Do not drive, work heavy equipment of sign legal documents for 24 hours. If your hernia repair was an inguinal repair, you may have scrotal swelling, an ice pack and/or athletic support can provide more comfort. Pain medications may cause nausea, you should typically eat light foods as you take your pain medications. Pain medications may also cause constipation. If you have difficulty with this, discuss with your doctor. Dressing / Incision Call your doctor if your incision/area has: Continuous Slow Oozing, Sudden Increased Bleeding, Increased Pain/ Swelling, Increased Redness and Foul Smelling Discharge Call your doctor if you observe: Fever of 101 or Higher Suture Line Care: Avoid Pulling/Pushing and Avoid Pinching/Bending Remove Dressing in: 2 days (Remove clear bandages in 2 days, remove Steri-Strips in 7 to 10 days.) Cleanse incision/area with: Soap & Water Follow Up Care Please Follow Up With: Luis Armando Orozco MD When: Please call to schedule 2 week follow up appointment. [phone] Test Results: Test results from this visit will be discussed in further detail at your follow- up appointment, if applicable. Discharge Plan Admission Attending Provider: Luis Armando Orozco Primary Care Provider: Sukhdeep Abernathy Discharge Orders/Prescriptions Prescriptions: New oxycodone-acetaminophen [Percocet] 5-325 mg tablet 1 tab PO Q6H PRN (Reason: pain) 5 Days Qty: 10 0RF No Action losartan 25 mg tablet 25 mg PO DAILY Label Comments: Take 1 tablet by mouth daily Referrals / Follow Up: Sukhdeep Abernathy MD [Primary Care Provider] - Disposition Disposition (needs filled in before D/C Order can be placed): Home, Self Care
[2022-09-02] MEDS: Ibuprofen 600 MG Tablet PO (14:02)
== END 2022-09-02 14:32 | disposition home or self-care (01) ==
LOC: SDC 09:57 → AC 09:58
PROVIDERS: Anesthesiology; PCP Family Medicine; Referring Provider Surgery; Visit Provider Surgery
PROC: 0YQ64ZZ Repair Left Inguinal Region, Percutaneous Endoscopic Approach (ICD-10-PCS; CPT 49650; principal; 2022-09-02 11:10)
DX: K40.90 Unilateral inguinal hernia, without obstruction or gangrene, not specified as recurrent (principal); K42.9 Umbilical hernia without obstruction or gangrene; I10 Essential (primary) hypertension
CPT/HCPCS: 49650; S2900; 00830; 85027; 93005; J7120; J2405

== ENCOUNTER → 2023-07-08 | Outpatient (CLI) | payer BC, SELFPAY ==
[2023-07-08 07:41] LABS: Anion Gap 4 (5-15); BUN 16 mg/dL (7-18); BUN/Creat Ratio 18.2 RATIO (10-20); Chloride 110 mmol/L (98-107); Cholesterol 199 mg/dL (200); Creatinine, Serum 0.88 mg/dL (0.70-1.30); EST Glomerular Filtration Rate 95 mL/min (>60); Est Glom Filt Rate - Afr Amer 115 mL/min (>60); Glucose 95 mg/dL (74-106); High Density Lipoprotein 52 mg/dL; PSA,Total- Diagnostic 1.84 ng/mL (0.0-4.0); Potassium 3.8 mmol/L (3.5-5.1); Sodium Level 139 mmol/L (136-145); Triglycerides 91 mg/dL; Very Low Density Lipoprotein 18 mg/dL (5-40)
--- NOTE | 2023-07-08 12:53 | STRESSREP_ITS ---
Stress Test Report Date: 07/08/2023 Procedure: Pharmacologic stress nuclear imaging study Indications: Chest pain Consent: Per the patient Procedure: The patient underwent pharmacologic (Regadenoson) evaluation with a peak heart rate of 105 beats per minute (64%predicted maximal heart rate) and a peak blood pressure of 158/90 mmHg. The baseline ECG demonstrated normal sinus rhythm, LVH. EKG during lexiscan infusion revealed no significant ischemic changes. EKG post infusion revealed no significant ischemic changes [There were no cardiac dysrhythmias pretest, during pharmacologic infusion, or recovery]. [There was no complaint of chest discomfort during pharmacologic infusion or recovery]. The examination was discontinued secondary to completion of protocol. Impression: 1. Lexiscan stress test test is negative for Lexiscan infusion induced EKG changes of ischemia. 2. Lexiscan stress test test is negative for Lexiscan infusion induced chest pain. 3. Results of the nuclear portion of the test is as below Myocardial perfusion imaging study: Technique: The patient was injected with 11.3 millicuries of technetium 99m Cardiolite and subsequently rest SPECT Cardiolite nuclear imaging was obtained in the horizontal long, vertical long, and short axis views. The patient underwent pharmacologic [Regadenoson 0.4mg] evaluation. Please see above for details. The patient was injected with 33.7 millicuries of technetium 99m Cardiolite and subsequently stress SPECT Cardiolite nuclear imaging was obtained in the horizontal long, vertical long, and short axis views. A gated Cardiolite study at peak stress was obtained. Interpretation: Rest and stress SPECT Cardiolite nuclear imaging status post realignment, normal ization, and attenuation correction demonstrate uniform myocardial radioisotope uptake on both the rest and stress images. There is no definite evidence of significant ischemia or infarction. Gated images reveal apical hypokinesis. The reported LVEF is 48%. Impression: 1. There is no definite evidence of significant ischemia or infarction. 2. Estimated ejection fraction is 48% with apical hypokinesis. This note was generated with [employer] software. It may contain incorrect words, spelling, and punctuation that were not noted in checking the note before signing.
== END | disposition home or self-care (01) ==
LOC: CVS 06:25
PROVIDERS: PCP Family Medicine; Referring Provider Family Medicine; Visit Provider Family Medicine
DX: Z00.00 Encounter for general adult medical examination without abnormal findings (principal); I10 Essential (primary) hypertension; I44.7 Left bundle-branch block, unspecified; R07.9 Chest pain, unspecified
CPT/HCPCS: 36415; 78452; 80048; 80061; 84153; 93017; A9500; A4216; J2785

== ENCOUNTER → 2023-11-15 | Outpatient (CLI) | payer BC, SELFPAY ==
--- NOTE | 2023-11-15 14:09 | ECHOD_ITS ---
Reason For Study: CORONARY ARTERY DISEASE Procedure This was a 2D Doppler, Color Flow transthoracic echocardiogram. Exam performed in department. Left Ventricle Normal LV size. Sigmoid septum. Left ventricular systolic function is normal. The left ventricular ejection fraction is 55 %. Stage 1 diastolic dysfunction. No regional wall motion abnormalities noted. Right Ventricle Normal RV size. Normal systolic function. Atria Normal left atrium. Normal right atrium. Mitral Valve Normal mitral valve. Tricuspid Valve Normal tricuspid valve. Aortic Valve Trisinus/trileaflet aortic valve. Pulmonic Valve Normal pulmonic valve. Great Vessels Normal aortic root. The pulmonary artery is normal size. Normal inferior vena cava. Pericardium/Pleural No pericardial effusion. MMode/2D Measurements & Calculations LVIDd: 4.9 cm IVSd: 1.7 cm LVOT diam: 2.1 cm LVIDs: 3.0 cm LVPWd: 1.1 cm LVOT area: 3.4 cm2 RVDd: 3.9 cm FS: 38.9 % Ao root diam: 3.0 cm LAV(MOD-sp4): 48.1 ml LVAd ap4: 29.5 cm2 LVLd ap4: 8.4 cm EDV(MOD-sp4): 85.2 ml EDV(sp4-el): 87.9 ml LVAs ap4: 19.1 cm2 LVLs ap4: 7.2 cm ESV(MOD-sp4): 41.5 ml ESV(sp4-el): 43.0 ml EF(MOD-sp4): 51.3 % EF(sp4-el): 51.1 % LVAd ap2: 29.9 cm2 SV(MOD-sp4): 43.7 ml SV(MOD-sp2): 47.6 ml LVLd ap2: 8.6 cm EDV(MOD-sp2): 89.8 ml EDV(sp2-el): 88.0 ml LVAs ap2: 19.6 cm2 LVLs ap2: 7.3 cm ESV(MOD-sp2): 42.2 ml ESV(sp2-el): 44.5 ml EF(MOD-sp2): 53.0 % SV(sp4-el): 44.9 ml LA dimension(2D): 4.4 cm LA A4 area: 17.6 cm2 RA A4 area: 13.1 cm2 TAPSE: 2.8 cm Time Measurements MV dec time: 0.36 sec Doppler Measurements & Calculations MV E max ajay: 59.0 cm/sec Lat Peak E' Ajay: 14.4 cm/sec Med Peak E' Ajay: 8.9 cm/sec MV A max ajay: 80.0 cm/sec E/E' lat: 4.1 E/E' med: 6.7 MV E/A: 0.74 Ao V2 max: 125.4 cm/sec LV V1 max: 118.6 cm/sec MV dec slope: 162.7 cm/sec2 Ao max P.3 mmHg LV V1 max P.6 mmHg Ao V2 mean: 85.8 cm/sec LV V1 mean P.9 mmHg Ao mean P.4 mmHg LV V1 mean: 78.5 cm/sec Ao V2 VTI: 22.0 cm LV V1 VTI: 21.1 cm AV (velocity ratio): 0.96 LAVON(I,D): 3.3 cm2 LAVON(V,D): 3.3 cm2 SV(LVOT): 72.5 ml PA V2 max: 111.4 cm/sec PA max PG (full): 0.93 mmHg ECHO/Echo Complete Interpretation Summary Normal LV size. Left ventricular systolic function is normal. The left ventricular ejection fraction is 55 %. Sigmoid septum. Stage 1 diastolic dysfunction. Ordering Physician: Earnest Bergman Referring Physician: Sukhdeep Abernathy Performed By: Annika Kincaid RDCS and Student
[2023-11-15 16:20] LABS: ALB/GLOB Ratio 0.9 RATIO (0.9-2.4); AST(SGOT) 22 U/L (15-37); Alanine Aminotransfer ALT/SGPT 27 U/L (16-61); Albumin, Serum 3.5 g/dL (3.2-5.0); Alkaline Phosphatase 93 U/L (45-117); Anion Gap 6 (5-15); BUN 15 mg/dL (7-18); BUN/Creat Ratio 17.1 RATIO (10-20); Calcium,Total 9.4 mg/dL (8.5-10.1); Chloride 104 mmol/L (98-107); Cholesterol 147 mg/dL (200); Creatinine, Serum 0.88 mg/dL (0.70-1.30); EST Glomerular Filtration Rate 95 mL/min (>60); Est Glom Filt Rate - Afr Amer 115 mL/min (>60); Globulin 3.9 g/dL (2.2-4.2); Glucose 95 mg/dL (74-106); High Density Lipoprotein 57 mg/dL; Potassium 3.6 mmol/L (3.5-5.1); Protein, Total 7.4 g/dL (6.4-8.2); Sodium Level 140 mmol/L (136-145); Triglycerides 123 mg/dL; Very Low Density Lipoprotein 25 mg/dL (5-40)
== END | disposition home or self-care (01) ==
LOC: CVS 14:04
PROVIDERS: PCP Family Medicine; Referring Provider Internal Medicine Cardiovascular Disease; Visit Provider Internal Medicine Cardiovascular Disease
DX: I25.10 Atherosclerotic heart disease of native coronary artery without angina pectoris (principal)
CPT/HCPCS: 36415; 80053; 80061; 93306

== ENCOUNTER → 2024-10-18 | Outpatient (CLI) | payer SELFPAY ==
[2024-10-18 12:09] LABS: AST(SGOT) 25 U/L (<=37); Alanine Aminotransfer ALT/SGPT 17 U/L (<=46); Albumin, Serum 4.2 g/dL (3.5-5.0); Alkaline Phosphatase 91 U/L (40-129); Bilirubin, Direct 0.41 mg/dL (0.00-0.30); Cholesterol 136 mg/dL (<=200); Globulin 2.9 g/dL (2.2-4.2); Low Density Lipoprotein Calc. 65 mg/dL; Triglycerides 50 mg/dL; Very Low Density Lipoprotein 10 mg/dL (5-40); cholesterol:hdl ratio screen 2.24
== END | disposition home or self-care (01) ==
PROVIDERS: PCP Family Medicine; Referring Provider Nurse Practitioner Gerontology; Visit Provider Nurse Practitioner Gerontology
DX: E78.00 Pure hypercholesterolemia, unspecified (principal)
CPT/HCPCS: 36415; 80061; 80076